=== PATIENT | female | born 1995 | race Caucasian/White ===

== ENCOUNTER 2021-10-24 14:18 | Outpatient (CLI) | payer BC, SELFPAY ==
[2021-10-24 14:38] LABS: Hematocrit 40.2 % (37.0-47.0); Mean Corpuscular HGB Conc 32.3 g/dl (32-36); Mean Corpuscular Hemoglobin 30.2 pg (26-34); Mean Corpuscular Volume 93.5 fl (80-100); Mean Platelet Volume 9.3 fl (7.4-10.4); Platelet Count Result 325 k/mm3 (150-375); Red Cell Distribution Width 14.2 % (11.5-14.5); White Blood Count 5.7 K/mm3 (4.5-10.0)
[2021-10-24 14:50] LABS: Alanine Aminotransferase 10 U/L (4-35); Albumin Level 4.4 g/dL (3.5-5.1); Alkaline Phosphatase 48 U/L (38-126); Anion Gap 6 mmol/L (8-16); Aspartate Amino Transferase 31 U/L (14-36); Bilirubin,Total 0.9 mg/dL (0.2-1.3); Blood Urea Nitrogen 11 mg/dL (7-17); Calcium 9.3 mg/dL (8.4-10.2); Carbon Dioxide 27 mmol/L (22-30); Chloride 105 mmol/L (98-107); Estimated Glomerular Filt Rate > 60; Glucose 99 mg/dL (65-110); Potassium 3.8 mmol/L (3.4-5.0); Sodium 138 mmol/L (137-145)
== END 2021-10-24 14:19 | disposition home or self-care (01) ==
LOC: ANHLAB 14:22
PROVIDERS: Visit Provider Nurse Practitioner Family
DX: K58.9 Irritable bowel syndrome, unspecified (principal)
CPT/HCPCS: 36415; 80053; 84443; 85027

== ENCOUNTER 2021-12-16 00:06 | Day surgery (SDC) | payer BC, SELFPAY ==
[2021-12-05 13:41] VITALS: BMI 22.5
[2021-12-16 07:27] VITALS: BP 107/68; PULSE 78; RESP 16; TEMP 36.5; O2SAT 100
[2021-12-16] MEDS: LACTATED RINGERS 1,000 ML 150 ML IV CONT (07:29)
--- NOTE | 2021-12-16 08:33 | P.PNAN_ITS ---
Anes - Initial Pre Proc Eval Procedure: Operation Date: 12/16/21 08:45 Proposed Procedures p Esophagogastroduodenoscopy - Bandar Last MD Date/Time: 12/16/21 08:33 Surgeon: Bandar Last MD Pre Op Diagnosis: GERD Patient Data Age: 26 Gender: F Height: 1.65 m Weight: 62.9 kg Last Vital Signs Temp 97.7 F 12/16/21 07:27 Pulse 78 12/16/21 07:27 Resp 16 12/16/21 07:27 BP 107/68 12/16/21 07:27 Pulse Ox 100 12/16/21 07:27 Allergies Allergy/AdvReac Type Severity Reaction Status Date / Time No Known Allergies Allergy Verified 12/16/21 07:26 Home Medications Medication Instructions Recorded Confirmed Type dextroamphetamine-amphetamine 20 20 mg PO BID 10/24/21 12/16/21 History mg tablet omeprazole magnesium 20 mg 20 mg PO BID 10/24/21 12/16/21 History capsule,delayed release peppermint 1 tablet BYMOUTH DAILY 10/24/21 12/16/21 History fluticasone propionate 50 1 - 2 spray INTRANASAL BID #16 ml 10/27/21 12/16/21 Rx mcg/actuation nasal spray,suspension Patient hx anesthesia problems: none Family hx anesthesia problems: none Results Review: All pre-operative results and documents have been reviewed as part of the pre-operative evaluation. [facility] Surgical History Surgical History H/O colonoscopy Family History Family History Father Alcohol abuse Carcinoma of colon Heart disease Mother Breast cancer Social History Social History Smoking status: Never smoker Second hand tobacco smoke exposure: No Alcohol intake: current Drinks per week: 2 Substance use: never Substance use type: does not use Living arrangements: with family Spiritual care concerns: No Anes - Eval Final PreProcedure Day of Procedure 12/16/21 08:33 Patient weight: normal Heart: regular rate and rhythm Lungs: clear to auscultation Airway: Mallampati scale class II Neurological: alert and oriented Last oral intake: >/= 8 hours ASA classification: II Emergent: no Anesthetic plan: proceed Anesthesia type and monitoring: general GIVS and standard monitoring Results Review: All pre-operative results and documents have been reviewed as part of the pre-operative evaluation. Informed Consent: The patient's anesthetic plan and its attendant risks and benefits were discussed with the patient/family/POA. Questions were solicited and answers provided to the satisfaction of the patient/family/POA.
--- NOTE | 2021-12-16 08:42 | WPDGICN ---
Assessment and Plan Assessment and plan (1) GERD (gastroesophageal reflux disease): Code(s): K21.9 - Gastro-esophageal reflux disease without esophagitis Status: Acute Assessment and Plan: Patient with heartburn substernal pressure suggesting acid reflux. Poor response to Prilosec. Plan is for EGD to assess more thoroughly. [place] diet and anti-reflux measures including elevating head of bed at night or encouraged. Further recommendations may be given after endoscopy. (2) IBS (irritable bowel syndrome): Code(s): K58.9 - Irritable bowel syndrome without diarrhea Status: Acute Assessment and Plan: Patient has alteration in bowel habits suggestive of irritable bowel syndrome. Plan to increase fiber intake suggest fiber supplements given her ongoing symptoms. (3) Family history of colon cancer in father: Code(s): Z80.0 - Family history of malignant neoplasm of digestive organs Status: Acute Assessment and Plan: Patient is father had colon cancer at age 52. Plan for follow-up colonoscopy in her early 40s. GI Consult Note Consult date/time: 12/16/21 08:42 HPI: Mohini Zuluaga is a 26 year old female Presents for EGD. Patient has ongoing complaints of heartburn and substernal pressure. She Tried omeprazole 20mg p.o. BID, with no improvement but currently takes peppermint oil for symptom relief. but symptoms have persisted. Patient complains of alteration in bowel habits. With morning urgency. She previously is felt to have IBS with constipation. Colonoscopy is 5 years ago was unremarkable. Family history is significant her father had colon cancer at age 52. Patient presents today for EGD. Review of Systems Review of Systems: All systems reviewed & are unremarkable except as noted in HPI and below PMFSH Surgical History Surgical History H/O colonoscopy Family History Family History Father Alcohol abuse Carcinoma of colon Heart disease Mother Breast cancer Social History Social History Smoking status: Never smoker Second hand tobacco smoke exposure: No Alcohol intake: current Drinks per week: 2 Substance use: never Substance use type: does not use Living arrangements: with family Spiritual care concerns: No Meds Home Medications and Allergies Home Medications Medication Instructions Recorded Confirmed Type dextroamphetamine-amphetamine 20 20 mg PO BID 10/24/21 12/16/21 History mg tablet omeprazole magnesium 20 mg 20 mg PO BID 10/24/21 12/16/21 History capsule,delayed release peppermint 1 tablet BYMOUTH DAILY 10/24/21 12/16/21 History fluticasone propionate 50 1 - 2 spray INTRANASAL BID #16 ml 10/27/21 12/16/21 Rx mcg/actuation nasal spray,suspension Allergies Allergy/AdvReac Type Severity Reaction Status Date / Time No Known Allergies Allergy Verified 12/16/21 07:26 Vital Signs Vital Signs - 24 hr 12/16/21 07:27 Temperature 97.7 F Pulse Rate 78 Respiratory Rate 16 Blood Pressure 107/68 Pulse Oximetry 100 Exam Narrative: Physical exam reveals patient to be alert. Vital signs stable. HEENT exam is unremarkable. Patient is anicteric. Lungs are clear to auscultation and percussion. Heart is without murmur or extra sounds. Abdominal exam bowel sounds are present soft nontender with no organomegaly.
[2021-12-16 09:10] VITALS: BP 102/62; PULSE 86; RESP 20; O2SAT 100
[2021-12-16 09:20] VITALS: BP 103/60; PULSE 65; RESP 18; O2SAT 100
[2021-12-16 09:30] VITALS: BP 102/66; PULSE 64; RESP 18; O2SAT 100
== END 2021-12-16 09:36 | disposition home or self-care (01) ==
PROVIDERS: Visit Provider Internal Medicine Gastroenterology
PROC: 0DJ08ZZ Inspection of Upper Intestinal Tract, Via Natural or Artificial Opening Endoscopic (ICD-10-PCS; CPT 43235; principal; 2021-12-16 08:45)
DX: K21.9 Gastro-esophageal reflux disease without esophagitis (principal); K58.9 Irritable bowel syndrome, unspecified; Z80.0 Family history of malignant neoplasm of digestive organs
CPT/HCPCS: 43239; 87081; J2704; J7120